=== PATIENT | male | born 1995 | race Two or more races ===

== ENCOUNTER 2019-04-19 15:45 | Emergency (ER) | payer OTHER ==
[~2019-04-19] VITALS: Ht 185.4 cm; Wt 95.3 kg
[2019-04-19 20:19] VITALS: BP 138/88
== END 2019-04-19 20:36 ==
LOC: EDBD 15:45 → ER 15:55 → EEVIPCON 15:55 → ER 20:36
DX: S01.511A Laceration without foreign body of lip, initial encounter (principal); W50.0XXA Accidental hit or strike by another person, initial encounter; Y93.67 Activity, basketball; Y92.149 Unspecified place in prison as the place of occurrence of the external cause; Y99.8 Other external cause status
CPT/HCPCS: 12011